=== PATIENT | male | born 1965 | race Caucasian/White ===

== ENCOUNTER 2018-03-31 14:21 | Outpatient (CLI) | payer OTHER | END 2018-03-31 14:22 | disposition home or self-care (01) | LOC: SC 14:21 → EDSEX 14:21 → SC 14:22 | PROVIDERS: ATTEND Internal Medicine Pulmonary Disease | DX: G47.00 Insomnia, unspecified (principal); R53.82 Chronic fatigue, unspecified | CPT/HCPCS: 99203; 99212 ==

== ENCOUNTER 2018-04-13 20:40 | Outpatient (CLI) | payer OTHER | END 2018-04-13 20:41 | disposition home or self-care (01) | LOC: SC 20:40 | PROVIDERS: ATTEND Internal Medicine Pulmonary Disease | DX: G47.10 Hypersomnia, unspecified (principal) | CPT/HCPCS: 95810 ==

== ENCOUNTER 2018-06-15 09:16 | Outpatient (CLI) | payer OTHER | END 2018-06-15 09:17 | disposition home or self-care (01) | LOC: SC 09:16 | PROVIDERS: ATTEND Nurse Practitioner Family | DX: R06.83 Snoring (principal); G47.00 Insomnia, unspecified | CPT/HCPCS: 99212; 99215 ==

== ENCOUNTER 2018-08-13 08:14 | Outpatient (CLI) | payer OTHER | END 2018-08-13 08:15 | disposition home or self-care (01) | LOC: SC 08:14 | PROVIDERS: ATTEND Nurse Practitioner Family | DX: G47.00 Insomnia, unspecified (principal) | CPT/HCPCS: 99212; 99214 ==